=== PATIENT | male | born 1960 | race Caucasian/White ===

== ENCOUNTER 2020-02-27 14:25 | Emergency (ER) | payer OTHER ==
[~2020-02-27] VITALS: Ht 172.7 cm; Wt 93.0 kg
[2020-02-27] MEDS ORDERED: ONDANSETRON HCL/PF 4 MG/2 ML VIAL ONE (15:08)
[2020-02-27] MEDS ORDERED: MORPHINE SULFATE INJ 4 MG/ML DISP.SYRIN ONE (15:08)
[2020-02-27 15:12] LABS: BASOPHILS % (AUTO) 0.2 % (0.0-2.0); HEMATOCRIT 29 % (39-51); HEMOGLOBIN 9.9 g/dL (13.5-17.5); LYMPHOCYTES # (AUTO) 0.2 /CMM (0.8-4.8); MEAN CORPUSCULAR HGB CONC 34 g/dl (31.0-36.0); MEAN CORPUSCULAR VOLUME 89 fL (80-96); MONOCYTES # (AUTO) 0.1 /CMM (0.1-1.30); MONOCYTES % (AUTO) 0.8 % (2.0-12.0); NEUTROPHILS # (AUTO) 7.7 /CMM (1.8-8.9); PLATELET COUNT (AUTO) 59 /CMM (150-450); WHITE BLOOD COUNT (AUTO) 8.1 K/uL (4.3-11.0)
[2020-02-27] MEDS: ONDANSETRON HCL/PF 4 MG/2 ML VIAL IVP ONE (15:16)
[2020-02-27] MEDS: MORPHINE SULFATE INJ 2 MG/ML DISP.SYRIN IV ONE (15:17)
--- NOTE | 2020-02-27 15:28 | NUR ---
BIB [facility], EPISODE OF DIZZINESS AND CONFUSION PRIOR TO EMS ARRIVAL WHICH RESOLVED,BLOOD SUGAR WAS 96. PT AAOX2, VSS. RR EVEN & UNLABORED. DENIES CP, SOB, DIZZINESS, N/V, WEAKNESS AT THIS TIME. PT SEEN & EVAL'D BY DR. LEE. PLACED ON [employer]IST, SR. WILL CONT TO MONITOR.
[2020-02-27 15:34] LABS: ALANINE AMINOTRANSFERASE 17 U/L (12-78); ALBUMIN 1.6 g/dL (3.4-5.0); ALKALINE PHOSPHATASE 61 U/L (46-116); ASPARTATE AMINOTRANSFERASE 56 U/L (15-37); BILIRUBIN,DIRECT 0.6 mg/dL (0.0-0.2); CALCIUM, SERUM 8.6 mg/dL (8.5-10.1); CARBON DIOXIDE 25 mmol/L (21-32); CHLORIDE 100 mmol/L (98-107); CREATININE 0.6 mg/dL (0.6-1.3); GLUCOSE 109 mg/dL (74-106); LIPASE 48 U/L (73-393); POTASSIUM 3.1 mmol/L (3.5-5.1); SODIUM SERUM 133 mmol/L (136-145); TOTAL PROTEIN, SERUM 6.4 g/dL (6.4-8.2); UREA NITROGEN, BLOOD 14 mg/dL (7-18)
[2020-02-27 15:45] LABS: BAND % (MANUAL) 5 % (0.0-5.0); EOSINOPHILS % (MANUAL) 1 % (0-4); LYMPHOCYTES % (MANUAL) 3 % (16-48); MONOCYTES % (MANUAL) 1 % (0-11.0); NEUTROPHILS % (MANUAL) 90 (42-76)
[2020-02-27] MEDS ORDERED: FAMO20TA8 PO (15:45)
[2020-02-27] MEDS ORDERED: FERR325T23 PO (15:45)
[2020-02-27] MEDS ORDERED: METH5TAB2 PO (15:45)
[2020-02-27] MEDS ORDERED: DIPH25CA51 PO (15:45)
[2020-02-27] MEDS ORDERED: TRIM300C24 PO (15:45)
[2020-02-27] MEDS ORDERED: DOCU-141 PO (15:45)
[2020-02-27] MEDS ORDERED: CALC500T13 PO (15:45)
[2020-02-27] MEDS ORDERED: APIX5TAB PO (15:45)
[2020-02-27] MEDS ORDERED: MAGN400T26 PO (15:45)
[2020-02-27] MEDS ORDERED: DULO60CA45 PO (15:45)
[2020-02-27] MEDS ORDERED: MELA1TAB25 PO (15:45)
[2020-02-27] MEDS ORDERED: SENN-261 PO (15:45)
[2020-02-27] MEDS ORDERED: GABA-532 PO (15:45)
[2020-02-27] MEDS ORDERED: FOLI0.4T2 PO (15:45)
[2020-02-27] MEDS ORDERED: METH-406 PO (15:45)
[2020-02-27] MEDS ORDERED: AMIN30LI27 PO (15:45)
[2020-02-27] MEDS ORDERED: OXYC30TA2 PO (15:45)
[2020-02-27] MEDS ORDERED: ONDA-97 PO (15:45)
[2020-02-27] MEDS ORDERED: ACET-868 PO (15:45)
[2020-02-27] MEDS ORDERED: CHOL100040 PO (15:45)
[2020-02-27 17:05] LABS: APPEARANCE,URINE Clear (CLEAR); BILIRUBIN,URINE Negative (NEGATIVE); BLOOD, URINE Trace-lysed Ery/uL (NEGATIVE); COLOR,URINE Yellow (YELLOW); KETONES,URINE Negative (NEGATIVE); LEUKOCYTE ESTERASE ,URINE Trace (NEGATIVE); NITRITE, URINE Positive (NEGATIVE); PROTEIN,URINE Negative (NEGATIVE); UGLUCOSE Negative (NEGATIVE)
[2020-02-27 17:18] LABS: BACTERIA,URINE 2+ /HPF (None Seen); SQUAMOUS EPITHELIAL CELL,UR Few /HPF (None Seen)
--- NOTE | 2020-02-27 17:35 | NUR ---
DR CIRILO ABBOTT
--- NOTE | 2020-02-27 17:40 | NUR ---
PAGED DR. CIRILO GUAMAN SECOND ATTEMPT.
--- NOTE | 2020-02-27 17:55 | NUR ---
PT ASLEEP, EASILY AWAKEN BY VERBAL STIMULI. DENIES CP, SOB, DIZZINESS, N/V AT THIS TIME. WILL CONT TO MONITOR.
[2020-02-27 17:56] VITALS: BP 123/72
[2020-02-27] MEDS ORDERED: CEFTRIAXONE 1GM BAG (ER ONLY) 50 ML IV ONE (18:36)
[2020-02-27] MEDS: CEFTRIAXONE 1 G in IV D5W 50 ML IV ONE (18:41)
--- NOTE | 2020-02-27 19:10 | NUR ---
CALLED [facility] FOR TRANSPORT TO [facility]. ETA 2000.
--- NOTE | 2020-02-27 19:42 | NUR ---
REPORT GIVEN TO TOM PALACIOS AT [facility] FOR [facility].
--- NOTE | 2020-02-27 20:15 | NUR ---
PT ENROUTE TO [facility] VIA [employer] FOR [facility].
== END 2020-02-27 20:18 ==
LOC: ER 14:31
DX: R07.89 Other chest pain (principal); R10.9 Unspecified abdominal pain; G89.29 Other chronic pain; M54.5 Low back pain; M46.28 Osteomyelitis of vertebra, sacral and sacrococcygeal region; N39.0 Urinary tract infection, site not specified; J90 Pleural effusion, not elsewhere classified; K74.69 Other cirrhosis of liver; L89.159 Pressure ulcer of sacral region, unspecified stage; I10 Essential (primary) hypertension; R00.0 Tachycardia, unspecified; E11.9 Type 2 diabetes mellitus without complications; H54.40 Blindness, one eye, unspecified eye; Z93.3 Colostomy status; Z98.890 Other specified postprocedural states; Z79.899 Other long term (current) drug therapy
CPT/HCPCS: 36415; 71045; 74176; 80048; 80076; 81001; 82962; 83690; 84484; 85025; 85730; 87086; 93005; 96365; 96375; 99285; J0696 ×2; J2270; J2405; J7060; 81000-TC